=== PATIENT | female | born 1960 | race Two or more races ===

== ENCOUNTER 2017-12-02 08:00 | Day surgery (SDC) | payer MEDICARE, MEDICAID ==
[2017-12-02] MEDS ORDERED: PROPOFOL INJ 200 MG/20 ML VIAL IV ONE ×2 (08:01→12:00)
[2017-12-02 09:46] VITALS: BP 135/74
--- NOTE | 2017-12-02 13:12 | Operative Report ---
Operative Report DATE OF SURGERY: 12/02/17 Operative Report: The risks, benefits and alternatives of the procedure of bleeding, perforation requiring surgery are explained to the patient in detail and informed consent is obtained. Patient is taken back to the endoscopy suite and placed in the left, lateral decubital position. Timeout was called. Propofol medication is administered. A rectal examination is done which did not reveal any masses, tears or fissures. An Olympus videoscope was inserted into the patient's rectum. The scope was then carefully advanced all the way to the cecum. The cecum was identified by the usual anatomical landmarks including the ileocecal valve as well as the appendiceal office. Photodocumentation is obtained. The scope was then sequentially pulled back via the various segments of the colon including the ascending colon, hepatic flexure, transverse colon, splenic flexure, descending colon and finally to the rectosigmoid portions of the colon. Retroflexion maneuvers performed. PREOPERATIVE DIAGNOSIS: Colorectal cancer screening POSTOPERATIVE DIAGNOSIS: Diverticulosis. Right sidecolon Inflammation status post biopsy rule out lymphocytic, microscopic, collagenous colitis. Internal hemorrhoids OPERATION: Colonoscopy with biopsy SURGEON: RICK MARQUEZ ANESTHESIA: LMAC TISSUE REMOVED OR ALTERED: As noted above. COMPLICATIONS: None. ESTIMATED BLOOD LOSS: None. INTRAOPERATIVE FINDINGS: As noted above. PROCEDURE: Patient tolerated procedure well. No immediate postprocedure complications are noted. Patient discharged in good condition. Discharge date 12/02/2017. Discharge diet: Regular. Discharge activity: Regular. 2-3 week follow-up to discuss findings. We will wait on pathology. If biopsies are negative can go for 10 year surveillance colonoscopy.
== END 2017-12-02 09:40 | disposition home or self-care (01) ==
LOC: END 08:00
PROVIDERS: ATTEND Internal Medicine Gastroenterology
PROC: 0DBE8ZX Excision of Large Intestine, Via Natural or Artificial Opening Endoscopic, Diagnostic (ICD-10-PCS; principal; 2017-12-02 09:00)
DX: K52.9 Noninfective gastroenteritis and colitis, unspecified (principal); K57.30 Diverticulosis of large intestine without perforation or abscess without bleeding; K64.8 Other hemorrhoids; R19.7 Diarrhea, unspecified; R10.9 Unspecified abdominal pain; R14.0 Abdominal distension (gaseous); Z80.0 Family history of malignant neoplasm of digestive organs; Z83.79 Family history of other diseases of the digestive system; I10 Essential (primary) hypertension
CPT/HCPCS: 45380; 88305 ×2; J2704; 811

== ENCOUNTER → 2018-07-24 | Outpatient (CLI) | payer MEDICARE, MEDICAID ==
--- NOTE | 2018-07-24 14:56 | RADIOLOGY REPORT (SQ) ---
EXAM DESCRIPTION: CT CHEST WITHOUT COMPLETED DATE/TIME: 07/24/2018 12:58 pm REASON FOR STUDY: R91.1 SOLITARY PULMONARY NODULE R91.1 SOLITARY PULMONARY NODULE COMPARISON: None. TECHNIQUE: CT scan performed of the chest without intravenous contrast. Images reviewed with lung, soft tissue and bone windows. Reconstructed coronal and sagittal MPR images reviewed. All images st ored on PACS. All CT scanners at this facility use dose modulation, iterative reconstruction, and/or weight based d osing when appropriate to reduce radiation dose to as low as reasonably achievable (ALARA). [facility]: Dose Right [facility]: CareDose [facility]: Dose Right [facility]: Teradose 4D [facility]: Smart Hunite RADIATION DOSE: CT Rad equipment meets quality standard of care and radiation dose reduction techniq ues were employed. CTDIvol: 4.3 mGy. DLP: 164 mGy-cm. mGy. LIMITATIONS: No technical limitations. FINDINGS: LUNGS AND PLEURA: There is a peripheral 5 mm nodule in the left lung on image 64. HILAR AND MEDIASTINAL STRUCTURES: No identified masses or abnormal nodes. No obvious aneurysm. HEART AND VASCULAR STRUCTURES: No aneurysm. No pericardial effusion. UPPER ABDOMEN: No significant findings. Limited exam. THYROID AND OTHER SOFT TISSUES: No masses. No adenopathy. BONES: No significant finding. HARDWARE: None in the chest. OTHER: No other significant findings. IMPRESSION: 5 mm left pulmonary nodule. COMMENT: F[place]NER CRITERIA FOR FOLLOW-UP OF PULMONARY NODULES Incidentally detected new nodules in persons 35 or older. HIGH RISK: History of smoking or other known risk factors. <6mm single solid nodule: LOW RISK: no routine followup. HIGH RISK: optional CT 12 mo. TECHNICAL DOCUMENTATION: JOB ID: [id number] Quality ID # [id number]: Final reports with documentation of one or more dose reduction techniques (e.g., Au tomated exposure control, adjustment of the mA and/or kV according to patient size, use of iterative reconstruction technique) 2010 [employer]- All Rights Reserved Reading location - IP/workstation name: [email or web address]
== END ==
LOC: RAD 16:44
PROVIDERS: ATTEND Internal Medicine Critical Care Medicine
DX: R91.1 Solitary pulmonary nodule (principal)
CPT/HCPCS: 71250

== ENCOUNTER → 2018-11-25 | Outpatient (CLI) | payer MEDICARE, MEDICAID ==
--- NOTE | 2018-11-25 10:31 | RADIOLOGY REPORT (SQ) ---
EXAM DESCRIPTION: CT CHEST WITHOUT COMPLETED DATE/TIME: 11/25/2018 10:14 am REASON FOR STUDY: PULMONARY NODULE (R91.1) R91.1 SOLITARY PULMONARY NODULE COMPARISON: 07/24/2018 CT chest TECHNIQUE: CT scan performed of the chest without intravenous contrast. Images reviewed with lung, soft tissue and bone windows. Reconstructed coronal and sagittal MPR images reviewed. All images st ored on PACS. All CT scanners at this facility use dose modulation, iterative reconstruction, and/or weight based d osing when appropriate to reduce radiation dose to as low as reasonably achievable (ALARA). [facility]: Dose Right [facility]: CareDose [facility]: Dose Right [facility]: Teradose 4D [facility]: Vilynx RADIATION DOSE: CT Rad equipment meets quality standard of care and radiation dose reduction techniq ues were employed. CTDIvol: 4.0 mGy. DLP: 149 mGy-cm. mGy. LIMITATIONS: No technical limitations. FINDINGS: LUNGS AND PLEURA: A benign calcified granuloma is present in the left lateral lung base al manuela the major fissure, 5 mm in size. This is unchanged from 07/24/2018. No further specific follow u p is warranted. Remainder of the lungs are otherwise well inflated and clear. No pleural effusion. No pneumothorax. Airways are patent. HILAR AND MEDIASTINAL STRUCTURES: No identified masses or abnormal nodes. No obvious aneurysm. HEART AND VASCULAR STRUCTURES: No aneurysm. No pericardial effusion. UPPER ABDOMEN: No significant findings. Limited exam. THYROID AND OTHER SOFT TISSUES: No masses. No adenopathy. BONES: No significant finding. HARDWARE: None in the chest. OTHER: No other significant findings. IMPRESSION: Benign calcified granuloma left lateral costophrenic sulcus. No further specific CT fol low-up needed TECHNICAL DOCUMENTATION: JOB ID: [id number] Quality ID # [id number]: Final reports with documentation of one or more dose reduction techniques (e.g., Au tomated exposure control, adjustment of the mA and/or kV according to patient size, use of iterative reconstruction technique) 2010 [employer]- All Rights Reserved Reading location - IP/workstation name: [email or web address]
== END ==
LOC: RAD 10:03
PROVIDERS: ATTEND Internal Medicine Critical Care Medicine
DX: R91.1 Solitary pulmonary nodule (principal); Z80.1 Family history of malignant neoplasm of trachea, bronchus and lung; J84.10 Pulmonary fibrosis, unspecified
CPT/HCPCS: 71250

== ENCOUNTER → 2019-01-01 | Outpatient (CLI) | payer MEDICARE, MEDICAID ==
--- NOTE | 2019-01-01 14:12 | RADIOLOGY REPORT (SQ) ---
EXAM DESCRIPTION: ANKLE LEFT COMPLETE COMPLETED DATE/TIME: 01/01/2019 1:56 pm REASON FOR STUDY: M25.572 PAIN IN LEFT ANKLE AND JOINTS OF LEFT FOOT M25.572 PAIN IN LEFT ANKLE AND JOINTS OF LEFT FOOT COMPARISON: None. EXAM PARAMETERS: NUMBER OF VIEWS: Three views. TECHNIQUE: AP, lateral and oblique radiographic images acquired of the left ankle. LIMITATIONS: None. FINDINGS: MINERALIZATION: Normal. BONES: No acute fracture or dislocation. No worrisome bone lesions. JOINTS: No effusion. SOFT TISSUES: No significant soft tissue swelling. No radiopaque foreign body. OTHER: No other significant finding. IMPRESSION: NO FRACTURE. TECHNICAL DOCUMENTATION: JOB ID: [id number] [place]-72 2010 [employer]- All Rights Reserved Reading location - IP/workstation name: [email or web address]
== END ==
LOC: RAD 13:33
PROVIDERS: ATTEND Nurse Practitioner Family
DX: M25.572 Pain in left ankle and joints of left foot (principal)

== ENCOUNTER → 2020-02-10 | Outpatient (CLI) | payer MEDICAID, MEDICARE ==
--- NOTE | 2020-02-10 19:09 | EKG REPORT ---
SEVERITY:- NORMAL ECG - SINUS RHYTHM : Confirmed by: Larry Eason 10-Feb-2020 19:08:40
== END ==
LOC: OD 10:44
PROVIDERS: ATTEND Nurse Practitioner Family
DX: I10 Essential (primary) hypertension (principal)
CPT/HCPCS: 93005; 93010